=== PATIENT | male | born 1935 | race African-American/Black ===

== ENCOUNTER 2017-10-15 03:48 | Emergency (ER) | payer OTHER ==
[~2017-10-15] VITALS: Ht 180.3 cm; Wt 82.7 kg
[2017-10-15 05:57] VITALS: BP 123/80
== END 2017-10-15 05:58 | disposition home or self-care (01) ==
LOC: EME 03:48
PROC: 09QKXZZ Repair Nasal Mucosa and Soft Tissue, External Approach (ICD-10-PCS; principal; 2017-10-15)
DX: R04.0 Epistaxis (principal)
CPT/HCPCS: 99281; 99284